=== PATIENT | female | born 1930 | race Asian ===

== ENCOUNTER 2019-12-05 19:41 | Inpatient (IN) ==
[2019-12-05] MEDS ORDERED: NS 1,000 ML IV ONE (21:42)
[2019-12-05] MEDS ORDERED: SODIUM CHLORIDE 0.9% INJ ONE (21:43)
[2019-12-05] MEDS ORDERED: PROTONIX IV ONE (21:43)
[2019-12-05 22:34] LABS: BASO# 0.06 X1000 (0.0-0.2); BASO% 0.7 % (0.0-0.8); EOS# 0.26 X1000 (0.0-0.7); EOS% 3.1 % (0.0-10.0); HEMATOCRIT 42.4 % (37.0-47.0); HEMOGLOBIN 14.3 g/dL (12.0-16.0); IMM GRAN# 0.03 X1000 (0.0-0.04); IMM GRAN% 0.4 % (0.0-0.5); LYMPH# 1.96 X1000 (1.2-3.4); LYMPH% 23.6 % (20.5-51.1); MCH 32.3 PG (27-31); MCHC 33.7 g/dL (33-37); MCV 95.7 FL (81-99); MONO# 0.49 X1000 (0.11-0.59); MONO% 5.9 % (1.7-9.3); MPV 9.9 FL (7.4-10.4); NEUT# 5.49 X1000 (1.4-6.5); NEUT% 66.3 % (42.2-75.2); PLT 337 X1000 (130-400); RBC 4.43 XMIL (4.2-5.4); RDW 14.8 % (11.5-14.5); WBC 8.29 X1000 (4.8-10.8)
[2019-12-05 22:44] LABS: INR 1.06; PROTIME 13.9 Seconds (11.0-16.0); PTT 34.3 Seconds (22.3-41.8)
[2019-12-05 22:55] LABS: AGAP 14; ALB/GLOB RATIO 1.3; ALBUMIN 3.9 g/dL (3.5-5.0); ALKALINE PHOSPHATASE 60 U/L (32-104); BUN 18 mg/dL (8-22); CALCIUM 8.9 mg/dL (8.8-10.2); CHLORIDE 100 mmol/L (98-107); COSMO 279; CREATININE 0.6 mg/dL (0.5-0.9); ESTIMATED GFR > 60; GLUCOSE 95 mg/dL (70-104); GOT 27 U/L (10-30); GPT 15 U/L (10-36); POTASSIUM 4.3 mmol/L (3.5-5.1); SODIUM 139 mmol/L (136-145); TCO2 25 mmol/L (25-35); TOTAL BILIRUBIN 0.34 mg/dL (0.20-1.00); TOTAL PROTEIN 6.8 g/dL (6.3-8.3)
--- NOTE | 2019-12-06 00:01 | PROVIDER DOCUMENTATION ---
This chart was entered by Della Meek Scribe, acting as scribe for Amarilis Kay MD. HPI-Abdominal Pain/GI Problem - General Chief Complaint: Rectal Bleeding Stated Complaint: RECTAL BLEEDING Time Seen by Provider: 12/05/19 20:30 Source: patient Allergies/Adverse Reactions: Patient Allergies Allergy/AdvReac Type Severity Reaction Status Date / Time procaine HCl * Allergy Mild RASH Verified 12/05/19 21:00 [From Novocain] Sulfa (Sulfonamide Allergy Mild RASH Verified 12/05/19 21:00 Antibiotics) Home Medications: Home Medication List Medication Instructions Recorded Confirmed Last Taken Type Aspirin [Aspir-Low] 81 mg PO DAILY 12/05/19 12/05/19 Unknown History Levothyroxine Sodium 88 mcg PO DAILY 12/05/19 12/05/19 12/05/19 History Losartan/Hydrochlorothiazide 1 tab PO DAILY 12/05/19 12/05/19 12/05/19 History [Losartan-Hctz 100-25 mg Tab] - History of Present Illness-ABD Nature of Presenting Problems: pt is a 89 yr old female presenting with complaint of profuse rectal bleeding tonight. pt reports dark and bright red blood when having bowel movement, denies any abdominal pain, nausea, vomiting diarrhea or constipation. Quality of Pain: reports: none Severity in ED: reports: moderate Onset/Duration: reports: this evening Timing: reports: still present Activities at Onset: reports: light activity Exposure to sick contacts?: No Modifying Factors: improves with: nothing Associated Symptoms: denies: chest pain, constipation, diarrhea, dizziness, fatigue, fever/chills, malaise, nausea, shortness of breath, vomiting Last BM: this evening Dark Stools Present?: reports: bright red blood, other (dark) Rectal Bleeding: reports: bleeding without stool # of Diarrhea Episodes: 0 Rectal Pain: reports: none # of Vomiting Episodes: 0 Emesis Description: reports: none Bruising or Bleeding Gums?: No Similar Symptoms Previously?: No Recently seen or treated by another doctor?: No Review of Systems - Adult - REVIEW OF SYSTEMS - ADULT Constitutional: denies: chills, fever, fatique Eyes: reports: no symptoms reported Ears, Nose, Mouth & Throat: reports: no symptoms reported Cardiovascular: denies: chest pain, palpitations, syncope Respiratory: denies: cough, dyspnea on exertion, shortness of breath Gastrointestinal: reports: rectal bleeding. denies: abdominal pain, constipation, diarrhea, nausea, poor appetite, vomiting Genitourinary: denies: dysuria, frequency, flank pain Musculoskeletal: denies: back pain, muscle aches, muscle weakness Integumentary: reports: no symptoms reported Neurological: denies: dizziness/vertigo, headache/migraines, syncope Psychiatric: reports: no symptoms reported Endocrine: reports: no symptoms reported Hematologic/Lymphatic: reports: no symptoms reported Allergic/Immunologic: reports: no symptoms reported All Other Systems: Reviewed and Negative Past History - Adult - PAST MEDICAL HISTORY-ADULT Review of Records: reports: Old Records Reviewed, Nursing Assessment Review, Medications Reviewed, Social history reviewed & non-contributory. Major Childhood Illnesses: reports: denies history Cardiovascular: reports: denies history Respiratory: reports: denies history Gastrointestinal: reports: denies history Obstetrical/Gynecological: reports: denies history Genitourinary: reports: denies history Musculoskeletal: reports: denies history Neurological: reports: denies history Endocrine/Immune: reports: denies history Other Conditions: reports: denies history - PRIOR SURGERIES/PROCEDURES Surgical/Procedure History: reports: other (total hip replacement) - IMMUNIZATION STATUS Childhood Immunizations: See Nurse Assessment Flu Vaccine: See Nurse Assessment - FAMILY HISTORY Family History: reviewed, not pertinent - SOCIAL HISTORY Smoking: non-smoker Substance Use: denies Living Situation: care facility (assisted living facility) Physical Exam-General - PHYSICAL EXAM-ADULT Initial Vital Signs Reviewed: Yes - CONSTITUTIONAL General Appearance: appears well, alert, no apparent distress - EYES Eyes: PERRL/EOMI - HEAD, EARS, NOSE, MOUTH & THROAT HENMT: normocephalic/atraumatic, normal ENT inspection, other (dry oral mucosa) - NECK Neck: non-tender, full range of motion, supple, normal inspection - RESPIRATORY Respiratory: chest non-tender, lungs clear, normal breath sounds, no respiratory distress, no accessory muscle use - CARDIOVASCULAR Cardiovascular: normal peripheral pulses, regular rate, rhythm, no edema - GASTROINTESTINAL (ABDOMEN) Abdominal Exam: normal bowel sounds, non tender, soft, other (rectal exam done with her nurse at bed side. Blood stained diaper noted. No external lesion or tenderness. finger exam was incomplete due to discomfort.) - LYMPHATIC Lymphatic: no adenopathy - MUSCULOSKELETAL Back Exam: normal inspection, no CVA tenderness, no vertebral tenderness Extremity: normal range of motion, non-tender, normal gait, normal inspection - SKIN Integumentary: normal color, normal turgor, warm/dry - NEUROLOGIC Neurologic: grossly normal, no motor/sensory deficits - PSYCHIATRIC Psych/Mental Status: normal mood/affect, normal thought content, normal thought process, oriented x 3 Progress - PLAN OF CARE/RESULTS Progress/Plan/Lab Results: Vital Signs - 8 hr 12/05/19 19:47 12/05/19 21:03 12/05/19 21:30 Temperature 98.3 F Pulse Rate 97 H 75 Respiratory Rate 18 19 Blood Pressure 121/74 156/89 162/98 O2 Sat by Pulse Oximetry 97 98 95 Orders Category Date Time Status Saline Loc DIRECTED Care 12/05/19 21:41 Active CBC WITH ELECTRONIC DIFF [HEME] Stat Lab 12/05/19 21:41 Uncollected COMPREHENSIVE METABOLIC PANEL [CHEM] Stat Lab 12/05/19 21:41 Uncollected OCCULT BLOOD SCREENING [STOOL] Stat Lab 12/05/19 21:00 Received PROTIME WITH INR [COAG] Stat Lab 12/05/19 21:42 Ordered PTT [COAG] Stat Lab 12/05/19 21:42 Ordered TYPE & SCREEN [BBK] Stat Lab 12/05/19 21:41 Uncollected 0.9% Sodium Chloride Inj [Ns] 1,000 ml Med 12/05/19 21:42 Active IV 999 mls/hr Pantoprazole [Protonix] Med 12/05/19 21:43 Discontinued 40 mg IV NOW ONE Sodium Chloride 0.9% Med 12/05/19 21:43 Discontinued 10 ml INJ NOW ONE Result Diagrams: 12/05/19 22:18 12/05/19 22:18 - CONSULTS/PCP/HOSPITALIST Notification #1 *Consult/PCP/Hospitalist*: GI Dr gurrola Time Discussed: 11:30 Consult Disposition: Admit (Wants hospitalist to admit and will see pt tomorrow) #2 Consult: Dr Villegas Time Discussed: 11:45 Consult Disposition: Admit (accepts admission) Departure - Departure Date of Disposition Decision: 12/05/19 Time of Disposition Decision: 23:54 DIAGNOSIS: GI (gastrointestinal bleed) Qualifiers: GI bleed type/associated pathology: unspecified gastrointestinal hemorrhage type Qualified Code(s): K92.2 - Gastrointestinal hemorrhage, unspecified Disposition: ADMITTED INPATIENT 09 Certified Medical Emergency: Emergent Condition: Stable Referrals and Follow-Ups: Landon Chen MD [Primary Care Provider] - - Critical Care Note This patient required my direct & personal management of CC.: No Attestation - Physician/ [place] Attestation Patient care was provided by Advanced Practice Provider:: No The physician spent face to face time with patient:: Yes Advanced Practice Provider documentation review:: Supervising physician onsite and consulted in the evaluation and care of this patient. The physician did have a face to face encounter with the patient. This chart was documented by the indicated scribe, (Della Meek Scribe) and accurately reflects the services I performed and decisions made by me, Amarilis Kay MD, as attested by the provider's signature.
--- NOTE | 2019-12-06 03:49 | HISTORY AND PHYSICAL ---
PRIMARY CARE PHYSICIAN: Dr. Chen. CHIEF COMPLAINT: Blood in stools. HISTORY OF PRESENTING ILLNESS: An 89-year-old elderly female with a history of hypertension, rheumatoid arthritis, pulmonary TB, and hypothyroidism, who had presented to emergency department with several days history of noticing dark-colored stools. She states that occasionally there were some red spots in the stools. She states that she was feeling not well and subsequently had come to the emergency department. In the ED, she was evaluated and due to suspicion of GI bleed it was thought that she would need admission for further management. At the time of my examination, the patient had denied any headache, fever, chills, chest pain, shortness of breath, but complained of dark-colored stools. PAST MEDICAL HISTORY: Includes hypertension, rheumatoid arthritis, pulmonary TB, hypothyroidism. PAST SURGICAL HISTORY: Hysterectomy. ALLERGIES: Sulfa and Novocain. CURRENT MEDICATIONS: Aspirin 81 mg p.o. daily, levothyroxine 88 mcg p.o. daily, losartan HCT 100/25 one p.o. daily. SOCIAL HISTORY: No history of smoking, alcohol or illicit drug use. FAMILY HISTORY: No history of coronary artery disease. REVIEW OF SYSTEMS: Fourteen point review of systems as listed in HPI. Other systems negative. PHYSICAL EXAMINATION: GENERAL: Cooperative, friendly, pleasant elderly female. She is without any respiratory distress. VITAL SIGNS: Temperature 98.3 degrees, pulse 97, respiration 18, blood pressure 121/74. HEENT: Atraumatic, normocephalic. Extraocular movements intact. PERRLA. NECK: No masses. CHEST: Clear to auscultation. CARDIOVASCULAR: Regular rate and rhythm. ABDOMEN: Soft. Positive bowel sounds. EXTREMITIES: No edema. NEUROLOGIC: She is awake, alert, oriented x2. GENITOURINARY: No bladder distention. SKIN: Warm. LABORATORIES AND STUDIES: WBC 8.29, hemoglobin 14.3, hematocrit 42.4, platelets 337,000. INR 1.06, PTT is 13.9. Sodium 139, potassium 4.3, chloride 100, CO2 is 25, BUN is 18, creatinine 0.6, glucose 95. ASSESSMENT: This is an 89-year-old elderly female with a history of hypertension, hypothyroidism, who had presented to emergency department with several days history of noticing dark-colored stools. She was evaluated in the emergency department and due to suspicion of bleed she will need admission for further management. 1. Suspected upper gastrointestinal bleed. 2. Hypertension. 3. Hypothyroidism. PLAN: 1. We will admit patient to medical floor with telemetry. 2. We will keep patient NPO, continue with IV fluids and start patient on Protonix drip. 3. We will consult Gastroenterology. 4. We will monitor blood pressures and resume antihypertensive agent. 5. Restart her home medications. 6. Put the patient on DVT prophylaxis with SCDs. 7. We will continue to follow, and reassess and make further recommendation based on patient's clinical course. cc: James Villegas MD
[2019-12-06] MEDS: PROTONIX 80 MG in NS 80 ML IV SCH ×2 (05:09→15:00)
[2019-12-06] MEDS: NS 1,000 ML IV SCH (05:09)
[2019-12-06] MEDS: SYNTHROID PO SCH (06:19)
--- NOTE | 2019-12-06 13:59 | GASTROENTEROLOGY CONSULTATION ---
DATE: 12/06/2019 REASON FOR CONSULT: GI bleed. HISTORY OF PRESENT ILLNESS: Ms. Temple is an 89-year-old, Iraqi female with a history of hypertension, rheumatoid arthritis, hypothyroidism, and tuberculosis. The patient presented to the ER last night, complaining of noticing blood in her stools. She mentioned that the blood was bright red color. The patient denies any fever, nausea, vomiting, abdominal pain, dizziness, or shortness of breath but she did mention that she had chills. She is a patient of Dr. Orr and he had seen her 09/21/2018. At that time patient mentioned having a colonoscopy [address] Truong and had hemorrhoids and diverticulosis. The patient's son was at the bedside. He did mention that the patient is on Aspirin 81 mg. On admission, the patient's hemoglobin was 14.3 and hematocrit was 42.4. Her stool occult blood was positive. PAST MEDICAL HISTORY: Hypertension, rheumatoid arthritis, hypothyroidism, and TB. PAST SURGICAL HISTORY: Hysterectomy, right hip surgery, knee replacement bilaterally, and cataract surgery bilaterally. ALLERGIES: Sulfa and Novocain. SOCIAL HISTORY: She is single. She lives at [facility]. She has 2 kids. She was a past smoker. She denied any alcohol or illicit drug use. FAMILY HISTORY: No significant GI malignancies. HOME MEDICATIONS: Levothyroxine 88 mcg daily, losartan/hydrochlorothiazide 100/25 mg 1 tablet daily, and aspirin 81 one tablet daily. REVIEW OF SYSTEMS: As per HPI. Otherwise, 12-point review of systems is negative. PHYSICAL EXAMINATION: Patient's temperature is 97.9 degrees, pulse is 79, respirations are 19, blood pressure 108/63, oxygen saturation 100% on room air. The patient's weight is 121 pounds. BMI is 26.9 kg/m2. General: She is alert, oriented x3, and in no acute distress. HEENT: Pale conjunctivae. No icterus. PERRL. Neck: Supple. Lungs: Clear to auscultation in the anterior donahue. Cardiovascular: Regular rate and rhythm. Abdomen: Soft, nontender, nondistended. Active bowel sounds heard in all 4 quadrants. Extremities: No clubbing, no cyanosis. The patient has edema in the lower extremities around the knee area. Skin was dry and flaky on the left lower extremity. Neurologic: She is alert, oriented x2. Nonfocal. Cranial nerves 2-12 grossly intact. The patient is hard of hearing. LABORATORY DATA: WBCs are 8.29, RBCs 4.43, hemoglobin 14.3, hematocrit 42.4, platelet count is 337,000. PT is 13.9, INR is 1.06. Sodium is 139, potassium is 4.3, chloride 100, carbon dioxide 25, anion gap 14, BUN 18, creatinine 0.6, glucose 95, calcium 8.9. Total bilirubin 0.34, AST 27, ALT 15, alkaline phosphatase 60, and albumin is 3.9. ASSESSMENT AND PLAN: 1. Rectal bleeding. 2. Diverticulosis. 3. GI bleed. 4. Hemorrhoids. 5. Rheumatoid arthritis. 6. Hypothyroidism. 7. Hypertension. PLAN: Ms. Temple is an 89 year old [place] female with the history of hypertension and rheumatoid arthritis, GI has been consulted for her Rectal bleeding. I did a rectal exam and it revealed active bleeding. Patient is currently on IV fluids, normal saline at 80 mL per hour. She is receiving GI prophylaxis Protonix IV 80 mg at 10 mL per hour. We plan to do a colonoscopy tomorrow to find out the cause of her bleeding. Discussed the risks, benefits, and alternatives of the procedure to the patient and her son. Patient and her son acknowledged understanding of the plan of care. Further plan of care will be based on the colonoscopy findings. This plan was discussed with Dr. Orr. Thank you for your consult. Please call us for any further questions or concerns. Dictated by EFREM Slaughter for Panfilo Orr MD cc: Panfilo Orr MD I have seen and examined the patient myself and I agree with the above plan of care. I have discussed the above with the patient and her son by phone and all questions were answered. Please call us with any further questions. GERALD
[2019-12-06] MEDS ORDERED: GOLYTELY PO ONE (14:00)
--- NOTE | 2019-12-06 20:07 | PROGRESS NOTE ---
DATE: 12/06/2019 SUBJECTIVE: Today Ms. Temple referred to be doing okay. She still has a bowel movement that was quite bloody, but otherwise no new complaints. OBJECTIVE: Vital Signs: Blood pressure 144/100, pulse of 89, respirations 16, temperature is 98 degrees. General: Ms. Temple is an 89-year-old lady. She is in bed, in no distress. Mucosa is pink and moist. Anicteric. Acyanotic. Neck: Supple. Chest: Clear to auscultation. No crepitations. No rhonchi. Cardiovascular: Regular rate and rhythm. Abdomen: Soft. Extremities: No pedal edema. LABORATORY DATA: The patient's laboratory data from yesterday has been reviewed. No repeat this morning. As I said, the bedside commode still has fairly bloody stained fecal material. Of note, Ms. Temple is known to have diverticulosis on a CT scan done on 03/04/2019. ASSESSMENT AND PLAN: 1. Gastrointestinal bleed, presumably diverticular in origin, has known nonpainful rectal bleed. The patient is pending a colonoscopy tomorrow. 2. Hypertension. 3. Hypothyroidism. DISCUSSION/SUMMARY: In general, Ms. Temple is fairly stable. We are going to continue with the PPI, the bowel prep, and await for the colonoscopy tomorrow. cc: Luis Hernandez MD
[2019-12-07] MEDS: PROTONIX 80 MG in NS 80 ML IV SCH (02:07)
[2019-12-07] MEDS ORDERED: PROTONIX IV SCH (02:43)
[2019-12-07] MEDS ORDERED: SODIUM CHLORIDE 0.9% INJ SCH (02:43)
[2019-12-07] MEDS: NS 1,000 ML IV SCH (06:08)
[2019-12-07] MEDS: SYNTHROID PO SCH (06:08)
[2019-12-07] MEDS ORDERED: XYLOCAINE-MPF 2% ONE (07:16)
[2019-12-07] MEDS ORDERED: DIPRIVAN 1% ONE (07:17)
[2019-12-07 07:53] VITALS: BP 141/66
[2019-12-07 08:01] LABS: BASO# 0.04 X1000 (0.0-0.2); BASO% 0.6 % (0.0-0.8); EOS# 0.32 X1000 (0.0-0.7); EOS% 4.5 % (0.0-10.0); HEMATOCRIT 34.8 % (37.0-47.0); HEMOGLOBIN 11.1 g/dL (12.0-16.0); LYMPH# 2.08 X1000 (1.2-3.4); LYMPH% 29.4 % (20.5-51.1); MCH 31.4 PG (27-31); MCHC 31.9 g/dL (33-37); MCV 98.3 FL (81-99); MONO# 0.28 X1000 (0.11-0.59); MPV 10.3 FL (7.4-10.4); NEUT# 4.36 X1000 (1.4-6.5); NEUT% 61.5 % (42.2-75.2); PLT 306 X1000 (130-400); RBC 3.54 XMIL (4.2-5.4); WBC 7.08 X1000 (4.8-10.8)
[2019-12-07 08:53] LABS: AGAP 11; BUN 9 mg/dL (8-22); CALCIUM 8.2 mg/dL (8.8-10.2); CHLORIDE 104 mmol/L (98-107); COSMO 279; CREATININE 0.5 mg/dL (0.5-0.9); ESTIMATED GFR > 60; GLUCOSE 77 mg/dL (70-104); POTASSIUM 3.8 mmol/L (3.5-5.1); SODIUM 141 mmol/L (136-145); TCO2 26 mmol/L (25-35)
--- NOTE | 2019-12-07 08:53 | ENDOSCOPY OPERATIVE NOTE ---
[facility] ENDOSCOPY OPERATIVE NOTE , COLONOSCOPY PROCEDURE REPORT EXAM DATE: 12/07/2019 PATIENT NAME: Jessenia Temple MR #: [id number] BIRTHDATE: 1930 ENDOSCOPIST: Landon Templeton MD STATUS: inpatient [employer]ER: INDICATIONS: The patient is a 89 yr old female here for a colonoscopy due to hematochezia and anemia , non-specific. PROCEDURE PERFORMED: Colonoscopy, diagnostic MEDICATIONS: Per Anesthesia PREP TYPE: GoLytely
--- NOTE | 2019-12-09 07:44 | DISCHARGE SUMMARY ---
ADMISSION DATE: 12/06/2019 DISCHARGE DATE: 12/07/2019 DISPOSITION: Is home. FOLLOW-UP: 1. Dr. Chen. 2. Dr. Templeton. CONSULTATION DURING THIS ADMISSION: GI was consulted. Patient was seen by Dr. Templeton. INVASIVE PROCEDURES DONE DURING THIS ADMISSION: A colonoscopy was done by Dr. Templeton. Findings showed moderate nonbleeding diverticulosis noted in the sigmoid colon, descending colon and ascending colon. There was also small internal and external hemorrhoids. The hematochezia was likely from diverticular bleed. No stigmata of recent bleeding. ASSESSMENT AT THE TIME OF ADMISSION: 1. Suspected upper GI bleed. 2. Hypertension. 3. Hypothyroid. DIAGNOSES AT THE TIME OF DISCHARGE: 1. Hematochezia secondary to diverticular bleed. 2. Diverticulosis. 3. Hypertension. 4. Hypothyroidism. 5. External hemorrhoids. DISCHARGE MEDICATIONS: 1. Levothyroxine 88 mcg p.o. daily. 2. Losartan with hydrochlorothiazide 1 tablet daily. 3. Aspirin 81 mg p.o. daily. 4. Metamucil 1 tablet b.i.d. PRESENTING COMPLAINT: Blood in stool. HISTORY OF PRESENTING COMPLAINT: Ms. Temple is an 89-year-old female with a history of hypothyroidism, rheumatoid arthritis, hypertension, remote pulmonary TB, came to the emergency room because of painless rectal bleed. The patient was evaluated and admitted. Ms. Temple was admitted to the medical floor with serial hemoglobin checks. On the day of discharge, her hemoglobin was 11.1. She underwent a colonoscopy with Dr. Templeton who noted that the bleed could potentially have come from a diverticular origin. At the time of the colonoscopy there was not any active bleeding. Her H and H has been stable. She has not had any more hematochezia. GI recommends that Ms. Temple could be discharged home. She was given recommendations on diet to prevent any diverticular complications. At the time of the discharge Ms. Temple's vitals: Blood pressure was 141/66, pulse of 77, respirations 16, temperature is 97.9 degrees. Physical exam was intact. Other discharge instructions were discussed with her and the son who was at the bedside at the time of the encounter. Time spent for discharge is 38 minutes. cc: MD Landon Hollis MD Dr. Putman
== END 2019-12-07 12:11 | disposition home or self-care (01) | DRG 379 ==
LOC: ED 19:41 → SUATTDRO 12-06 03:10 → EDIPHOLD 12-06 03:10 → 3N 12-06 04:33
PROVIDERS: ATTEND Internal Medicine